=== PATIENT | male | born 1990 | race Two or more races ===

== ENCOUNTER 2021-03-31 08:38 | Outpatient (CLI) | payer OTHER ==
[2021-03-31] MEDS ORDERED: NONE PER PT (08:56)
[2021-03-31] MEDS ORDERED: ALBU8.5H8 INH (09:09)
== END 2021-03-31 23:59 | disposition home or self-care (01) ==
LOC: STAR 08:38
PROVIDERS: ATTEND Otolaryngology
DX: Z20.822 Contact with and (suspected) exposure to COVID-19 (principal); J31.0 Chronic rhinitis
CPT/HCPCS: U0003; U0005

== ENCOUNTER 2021-04-04 05:39 | Day surgery (SDC) | payer OTHER ==
[~2021-04-04] VITALS: Ht 172.7 cm; Wt 98.4 kg
[~2021-04-04 05:39] MED LIST: ALBU8.5H8 INH; NONE PER PT
[2021-04-04 06:14] VITALS: BP 151/90
[2021-04-04] MEDS ORDERED: LACTATED RINGERS 1,000 ML IV SCH (06:30)
[2021-04-04] MEDS ORDERED: CHLORHEXIDINE 15 ML UDC PO ONE (06:30)
[2021-04-04] MEDS ORDERED: FLUORESCEIN SODIUM 500 MG/5 ML ONE (06:49)
[2021-04-04] MEDS ORDERED: EPINEPHRINE TOPICAL SOLN 1 MG/ML, 30ML ONE (06:49)
[2021-04-04] MEDS ORDERED: BACITRACIN OINT 500U/GM, 15 GM ONE (06:49)
[2021-04-04] MEDS ORDERED: OXYMETAZOLINE NASAL SPRAY 0.05%,30ML ONE (06:50)
[2021-04-04] MEDS ORDERED: LIDOCAINE/PF 1%, 30ML ONE (06:50)
[2021-04-04] MEDS ORDERED: EPINEPHRINE 1 MG/ML, 1ML ONE (06:50)
[2021-04-04] MEDS ORDERED: MIDAZOLAM 1 MG/ML, 2ML ONE (07:00)
[2021-04-04] MEDS ORDERED: FENTANYL PF 250 MCG/5ML ONE (07:00)
[2021-04-04] MEDS ORDERED: PROPOFOL 10 MG/ML, 20ML ONE (07:02)
[2021-04-04] MEDS ORDERED: ROCURONIUM 10MG/ML,5ML ONE (07:02)
[2021-04-04] MEDS ORDERED: LIDOCAINE-MPF 2% ,5ML ONE (07:04)
[2021-04-04] MEDS ORDERED: PROMETHAZINE 25 MG/ML, 1ML IVPush PRN (07:30)
[2021-04-04] MEDS ORDERED: ONDANSETRON 2MG/ML, 2ML IVPush PRN (07:30)
[2021-04-04] MEDS ORDERED: OXYcodone 5 MG/5 ML ORAL.SOL UDC PO PRN (07:30)
[2021-04-04] MEDS ORDERED: DIAZEPAM 5 MG/ML, 2ML IVPush PRN (07:30)
[2021-04-04] MEDS ORDERED: HYDROmorphone 1 MG/ML, 1ML INJ IVPush PRN (07:30)
[2021-04-04] MEDS ORDERED: MEPERIDINE/PF 25MG/0.5ML IVPush PRN (07:30)
[2021-04-04] MEDS ORDERED: ALBUTEROL SULFATE 2.5 MG/3 ML NPPB PRN (07:30)
[2021-04-04] MEDS ORDERED: FENTANYL PF 100 MCG/2ML IV PRN (07:30)
[2021-04-04] MEDS ORDERED: ACETAMINOPHEN 325 MG TABLET PO PRN (07:30)
[2021-04-04] MEDS ORDERED: DEXAMETHASONE 4 MG/ML, 1ML ONE (07:49)
[2021-04-04] MEDS ORDERED: CEFAZOLIN 1,000 MG ONE ×2 (08:30)
[2021-04-04] MEDS ORDERED: ONDANSETRON 2MG/ML, 2ML ONE (08:31)
[2021-04-04] MEDS ORDERED: NEOSTIGMINE 1 MG/ML, 10ML ONE (08:31)
[2021-04-04] MEDS ORDERED: GLYCOPYRROLATE 0.2MG/1ML, 5ML ONE (08:31)
[2021-04-04] MEDS ORDERED: ACETAMINOPHEN 650 MG/20.3 ML UDC ONE (09:12)
[2021-04-04] MEDS ORDERED: OXYcodone 5 MG/5 ML ORAL.SOL UDC ONE (09:12)
[2021-04-04] MEDS ORDERED: FENTANYL PF 100 MCG/2ML ONE (09:12)
== END 2021-04-04 10:20 | disposition home or self-care (01) ==
LOC: OUT 05:39
PROVIDERS: ATTEND Otolaryngology
DX: J34.2 Deviated nasal septum (principal); J34.3 Hypertrophy of nasal turbinates; J34.89 Other specified disorders of nose and nasal sinuses; J31.0 Chronic rhinitis; J45.909 Unspecified asthma, uncomplicated; I10 Essential (primary) hypertension; G47.33 Obstructive sleep apnea (adult) (pediatric); Z79.899 Other long term (current) drug therapy
CPT/HCPCS: 30140; 30520; J0171; J0690; J1100; J2250; J2405; J2704; J2710; J3010; J7120